=== PATIENT | male | born 1975 | race Caucasian/White ===

== ENCOUNTER 2020-08-22 12:57 | Emergency (ER) | payer OTHER ==
[~2020-08-22] VITALS: Ht 167.6 cm; Wt 136.1 kg
[2020-08-22 12:58] VITALS: BP 149/92
[2020-08-22] MEDS ORDERED: KETOROLAC TROMETH 60MG/2ML VIAL IM ONE (14:00)
== END 2020-08-22 15:33 | disposition home or self-care (01) ==
LOC: ER 12:57
DX: S43.422A Sprain of left rotator cuff capsule, initial encounter (principal); X50.0XXA Overexertion from strenuous movement or load, initial encounter; Y93.89 Activity, other specified; Y92.89 Other specified places as the place of occurrence of the external cause; Y99.8 Other external cause status
CPT/HCPCS: 73030; 96372; 99283; J1885